=== PATIENT | female | born 1970 | race Caucasian/White ===

== ENCOUNTER 2017-07-03 15:18 | Emergency (ER) | payer OTHER ==
[~2017-07-03] VITALS: Ht 170.2 cm; Wt 88.5 kg
[~2017-07-03 15:18] MED LIST: CLARITIN10 M1 PO; LEVOTHYROXIN0.088 MG PO; LEVOXYL88 MCG PO; LOPRESSOR HCT 21 TAB PO; METOPROLOL-HCT1 EAC1 PO; MOBIC15 M1 PO; NASONEX17 GM NASB; TESSALON PERLE100 M1 PO; VICODIN5-300 PO; VITAMIN D250000 UNIT PO
[2017-07-03 15:31] VITALS: BP 151/86
[2017-07-03] MEDS ORDERED: CYCLOBENZAPRINE10 M1 PO (17:28)
[2017-07-03] MEDS ORDERED: NORCO 5-325 TA1 EACH PO (17:28)
--- NOTE | 2017-07-03 17:29 | ED GENERAL ADULT ---
History of Present Illness General Chief Complaint: Low Back Pain/Injury Stated Complaint: LOWER BACK PAIN ON RIGHT SIDE Source: patient Exam Limitations: no limitations Vital Signs & Intake/Output Vital Signs & Intake/Output Vital Signs Date Time Temp Pulse Resp B/P B/P Pulse O2 O2 Flow FiO2 Mean Ox Delivery Rate 07/03 1531 97.0 74 18 151/86 98 Room Air ED Intake and Output 07/04 0000 07/03 1200 Intake Total Output Total Balance Patient 195 lb Weight Weight Reported by Patient Measurement Method Allergies Coded Allergies: diclofenac (PER PT TURNED BRIGHT RED AND ITCHY 01/26/17) Reconcile Medications Benzonatate (Tessalon Perle) 100 MG CAPSULE 1 CAP PO TID PRN COUGH Cyclobenzaprine HCl 10 MG TABLET 1 TAB PO TID PRN PAIN Ergocalciferol (Vitamin D2) (Vitamin D2) 50,000 UNIT CAPSULE 1 CAP PO QTHURS SUPPLEMENT (Reported) Hydrocodone/Acetaminophen ([place] 5-325 Tablet) 5 MG-325 MG TABLET 1 TAB PO Q4- 6 PRN PRN SEVERE PAIN Levothyroxine Sodium (Levoxyl) 88 MCG TABLET 1 TAB PO DAILY THYROID (Reported ) Loratadine (Claritin) 10 MG TABLET 1 TAB PO DAILY ALLERGIES (Reported) Meloxicam (Mobic) 15 MG TABLET 1 TAB PO DAILY PAIN/INFLAMMATION (Reported) Metoprolol/Hydrochlorothiazide (Metoprolol-Hctz 50-25 MG Tab) 50 MG-25 MG TABLET 1 TAB PO DAILY BP (Reported) Mometasone Furoate (Nasonex) 50 MCG SPRAY.PUMP 2 SPRAY NASB DAILY PRN CONGESTION Triage Note: PT TO ER C/C RIGHT FLANK PAIN X 1 DAY ON AND OFF. DENIES N/V/D. DENIES INJURY. DENIES URINARY S/S. Triage Nurses Notes Reviewed? yes Onset: Gradual Duration: day(s): (1-2), changing over time, continues in ED Timing: single episode today Injury Environment: home Severity: mild, moderate Severity Numbers: 6 No Modifying Factors: none Associated Symptoms: back pain LMP (ages 10-50): unknown : No Patient currently breastfeeds: No HPI: 46-year-old female past medical history of hypertension, hypothyroidism sensory evaluation of back pain. Patient states symptoms started when she days ago and have been intermittent. The pain is located on the right side of her lower back sometimes radiating to the right flank. It is worse with movement or laying on the area. There is no trauma or triggering event. She reports having pain like this in the past but never this severe persistent. No numbness or tingling. No urinary symptoms no hematuria no abdominal pain numbness tingling fever chest pain or shortness of breath. She rates pain as a 6 out of 10. She states that she took a Flexeril tablet that she had at home with improvement. (Joel Ramirez) Past History Travel History Traveled to [place] past 21 day No Medical History Any Pertinent Medical History? see below for history Neurological: NONE EENT: NONE Cardiovascular: hypertension Respiratory: NONE Gastrointestinal: NONE Hepatic: NONE Renal: NONE Musculoskeletal: NONE Psychiatric: NONE Endocrine: hypothyroidism Blood Disorders: NONE Cancer(s): NONE SUPERVISOR FABRICATION DEPARTMENT/Reproductive: NONE Surgical History Surgical History: hernia repair-incisional Psychosocial History What is your primary language Albanian Tobacco Use: Never used Family History Hx Contributory? No (Joel Ramirez) Review of Systems Review of Systems Constitutional: Reports: no symptoms. EENTM: Reports: no symptoms. Respiratory: Reports: no symptoms. Cardiovascular: Reports: no symptoms. GI: Reports: no symptoms. Genitourinary: Reports: no symptoms. Musculoskeletal: Reports: see HPI, back pain. Skin: Reports: no symptoms. Neurological/Psychological: Reports: no symptoms. Hematologic/Endocrine: Reports: no symptoms. Immunologic/Allergic: Reports: no symptoms. All Other Systems: Reviewed and Negative (Joel Ramirez) Physical Exam Physical Exam General Appearance: well developed/nourished, no apparent distress, alert, awake Head: atraumatic, normal appearance Eyes: Bilateral: normal appearance, EOMI. Ears, Nose, Throat: hearing grossly normal Neck: normal inspection, supple, full range of motion Respiratory: normal breath sounds, chest non-tender, no respiratory distress, lungs clear Cardiovascular: regular rate/rhythm, normal peripheral pulses Peripheral Pulses: 2+ radial (R), 2+ radial (L) Gastrointestinal: normal bowel sounds, soft, non-tender, no organomegaly Back: normal inspection, normal range of motion (WITH PAIN ), RIGHT-SIDED LUMBAR PARASPINOUS MUSCLES TENDER TO PALPATION. nO MIDLINE TENDERNESS NO STEP-OFFS OR DEFORMITIES NO BRUISING SWELLING OR ABRASIONS Extremities: normal inspection, normal range of motion, no edema, straight leg raised (NEGATIVE), PAIN WITH RANGE OF MOTION OF THE RIGHT HIP. pATIENT IS ABLE TO WALK AND BEAR WEIGHT NO JOINT SWELLING Neurologic/Psych: no motor/sensory deficits, awake, alert, oriented x 3, normal gait Reflexes: 2+: knee (R), knee (L). Skin: intact, normal color, warm/dry Lymphatic: no anterior cervical lisa Core Measures ACS in differential dx? No CVA/TIA Diagnosis: No Sepsis Present: No Sepsis Focused Exam Completed? No (Joel Ramirez) Progress Differential Diagnoses I considered the following diagnoses in my evaluation of the patient: [Muscle strain, herniated disc, kidney stone, pyelonephritis, osteoarthritis] Plan of Care: Orders Procedure Date/time Status URINALYSIS 07/03 1541 Complete Laboratory Tests 07/03/17 1542: Urine Color YEL, Urine Clarity CLEAR, Urine pH 6.0, Ur Specific [place] 1.010, Urine Protein NEG, Urine Ketones NEG, Urine Nitrite NEG, Urine Bilirubin NEG, Urine Urobilinogen 0.2, Ur Leukocyte Esterase TRACE H, Ur Microscopic SEDIMENT EXAMINED, Urine RBC RARE, Urine WBC RARE, Ur Epithelial Cells RARE, Urine Bacteria RARE H, Urine Hemoglobin NEG, Urine Glucose NEG Patient seen and evaluated. She is reporting pain in the right lower back that radiates into the right flank. The pain is much worse with range of motion and palpation. There is no urinary symptoms. Urinalysis was obtained to evaluate for pyelonephritis versus kidney stone but was negative. There was no trauma or bony point tenderness to suspect fracture. Patient will be treated symptomatically at this time for musculoskeletal low back pain. Advised to rest and avoid excessive physical activity he Tylenol and ibuprofen needed. Cyclobenzaprine and [place] for severe pain in these may cause her cousin's. Make a follow-up with primary care doctor for recheck. Discussed return precautions in detail. Patient agrees the plan. Initial ED EKG: none (Joel Ramirez) Departure Departure Disposition: HOME OR SELF CARE Condition: Stable Clinical Impression Primary Impression: Low back pain Qualifiers: Chronicity: acute Back pain laterality: right Sciatica presence: without sciatica Qualified Code: M54.5 - Low back pain Referrals: Chito BYRNE,Fito Marcos (PCP/Family) Additional Instructions: Rest, avoid heavy lifting bending or excessive physical activity. Use ibuprofen 800 mg every 8 hours with food as needed for pain. Cyclobenzaprine can also be used every 8 hours as needed for pain this may cause drowsiness. [place] for severe pain only. Follow-up with your primary care doctor for a recheck this week. Monitor your symptoms return with any concerns. Departure Forms: Customer Survey General Discharge Information Prescriptions: Current Visit Scripts Cyclobenzaprine HCl 1 TAB PO TID PRN PAIN #30 TAB Hydrocodone/Acetaminophen ([place] 5-325 Tablet) 1 TAB PO Q4-6 PRN PRN SEVERE PAIN #8 TAB (Joel Ramirez) PA/MAJOR APPLIANCE ASSEMBLY SUPERVISOR Co-Sign Statement Statement: ED Attending supervision documentation- I saw and evaluated the patient. I have also reviewed all the pertinent lab results and diagnostic results. I agree with the findings and the plan of care as documented in the PA's/MAJOR APPLIANCE ASSEMBLY SUPERVISOR's documentation. x I have reviewed the ED Record and agree with the PA's/MAJOR APPLIANCE ASSEMBLY SUPERVISOR's documentation. [] Additions or exceptions (if any) to the PAs/MAJOR APPLIANCE ASSEMBLY SUPERVISOR's note and plan are summarized below: [] (Alexander BYRNE,Lloyd) Critical Care Note Critical Care Note Critical Care Time: non-applicable (Joel Ramirez)
== END 2017-07-03 17:35 ==
LOC: ERH 15:18
DX: M54.5 Low back pain (principal)
CPT/HCPCS: 81001